=== PATIENT | female | born 1945 ===

== ENCOUNTER 2022-03-29 20:06 | Inpatient (IN) | payer OTHER ==
[2022-03-29 22:35] VITALS: BMI 28.1
[2022-03-29] MEDS ORDERED: Ondansetron PF 4 MG/2 ML Vial IVP PRN (22:55)
[2022-03-29] MEDS ORDERED: Ipratropium/Albuterol 3 ML NEB NEB PRN (22:55)
[2022-03-29] MEDS ORDERED: TETANUS, DIPHTHERIA TOX,ADULT (TDVAX) 0.5 ML VIAL IM ONE (22:55)
[2022-03-30] MEDS: Acetaminophen 500 MG TAB PO SCH ×5 (00:04→23:13)
[2022-03-30] MEDS: Sodium Chloride 0.9% 1,000 ML IV SCH ×3 (00:05→17:17)
[2022-03-30] MEDS: Morphine 2 MG/ML VIAL SLOW IVP PRN ×3 (00:05→09:27)
[2022-03-30 00:10] LABS: SARS-CoV-2 NAA Rapid Test Not Detected (NotDetected)
[2022-03-30 01:53] LABS: Bilirubin Negative (Negative); Blood, Urine Negative (Negative); Glucose, Urine (Dipstick) Negative (Negative); Ketone, Urine Negative (Negative); Leukocyte Negative (Negative); Nitrite Negative (Negative); Protein, Urine (Dipstick) Negative (Neg-Trace); Urobilinogen 0.2 mg/dL (Less than 2)
[2022-03-30 01:59] LABS: CAUTI Indications for Culture Pelvic or flank pain; Clarity Clear (Clear); RBC/HPF 0-3 HPF (0-3)
[2022-03-30 02:00] LABS: Bacteria/HPF 3+ HPF (None Seen)
[2022-03-30 02:01] LABS: Urine Culture Reflex No No
[2022-03-30 05:41] LABS: #Eosinphils 0.1 thou/uL (0.0-0.7); #Lymphocytes 1.6 thou/uL (1.20-3.40); #Monocytes 1.1 thou/uL (0.11-0.59); #Neutrophils 13.7 thou/uL (1.40-6.50); %Basophils 0.1 % (0.0-1.0); %Eosinophils 0.6 % (0.0-10.0); %Lymphocytes 9.6 % (21.0-51.0); %Monocytes 6.9 % (0.0-10.0); %Neutrophils 82.8 % (42.0-75.0); Hemoglobin 12.7 g/dL (12.0-16.0); Mean Corpuscular HGB CONC 32.9 g/dL (32.0-36.0); Mean Corpuscular Hemoglobin 29.4 pg (27.0-31.0); Mean Corpuscular Volume 89.4 fl (78.0-98.0); Mean Platelet Volume 7.1 fL (7.4-10.4); Platelet Count 327 10x3/uL (130-400); RBC Distribution Width 13.1 % (11.5-14.5); Red Blood Cell (RBC) Count 4.31 mill/uL (4.20-5.40); White Blood Cell (WBC) Count 16.6 10x3/uL (4.8-10.8)
[2022-03-30 05:51] LABS: Prothrombin Time 13.9 sec (12.0-14.7)
[2022-03-30 05:52] LABS: PTT 33.3 sec (22.9-36.1)
[2022-03-30 06:01] LABS: Anion Gap 12 mmol/L (10-20); BUN (Urea Nitrogen) 15 mg/dL (9.8-20.1); Calc. Creatinine Clearance 63 mL/min (70-130); Calcium 8.9 mg/dL (7.8-10.44); Carbon Dioxide 28 mmol/L (23-31); Chloride 95 mmol/L (98-107); Estimated GFR 66; Glucose 129 mg/dL (83-110); Magnesium 2.3 mg/dL (1.6-2.6); Phosphorus 2.7 mg/dL (2.3-4.7); Potassium 3.1 mmol/L (3.5-5.1); Sodium 132 mmol/L (136-145)
[2022-03-30] MEDS ORDERED: CEFAZOLIN 2 GM in Sodium Chloride 0.9% 100 ML IVPB SCH (07:45)
[2022-03-30] MEDS ORDERED: Sodium Phosphate 30 MMOL in Sodium Chloride 0.9% 250 ML 250 ML IVPB SCH (08:00)
[2022-03-30] MEDS: Polyethylene Glycol 3350 17 GM Packet PO SCH (09:03)
[2022-03-30] MEDS: Senokot S 8.6-50 MG TAB PO SCH ×3 (09:03→22:09)
[2022-03-30] MEDS: Famotidine/PF 20 mg/2ml Vial SLOW IVP SCH ×2 (09:04→22:09)
[2022-03-30] MEDS ORDERED: hydrALAZINE 20 MG/ML VIAL SLOW IVP PRN (09:33)
[2022-03-30] MEDS ORDERED: Fentanyl 250 MCG/5 ML VIAL ONE (14:19)
[2022-03-30] MEDS ORDERED: CEFAZOLIN 2 GM VIAL ONE (14:20)
[2022-03-30] MEDS ORDERED: Sodium Chloride 0.9% 100 ML ONE (14:20)
[2022-03-30] MEDS ORDERED: ePHEDrine 50 MG/ML VIAL ONE ×2 (14:41)
[2022-03-30] MEDS ORDERED: PROPOFOL 200 MG/20 ML VIAL ONE (14:41)
[2022-03-30] MEDS ORDERED: Glycopyrrolate 0.2 MG/ML 5 ML SYRINGE ONE (14:41)
[2022-03-30] MEDS ORDERED: PHENYLEPHRINE-NS 100 MCG/ML 10 ML SYRINGE ONE (14:41)
[2022-03-30] MEDS ORDERED: NEOSTIGMINE 3 MG/3 ML SYR 3 MG/3 ML SYRINGE ONE (14:41)
[2022-03-30] MEDS ORDERED: Rocuronium Bromide 10 MG/ML (10ML VIAL) ONE (14:41)
[2022-03-30] MEDS ORDERED: Promethazine HCl 25 MG/ML VIAL IM PRN (15:50)
[2022-03-30] MEDS ORDERED: Ondansetron HCl/PF 4 MG/2 ML Vial IVP PRN (15:50)
[2022-03-30] MEDS ORDERED: Promethazine HCl 25 MG/ML VIAL IVPB PRN (15:50)
[2022-03-30] MEDS: Atorvastatin Calcium 40 MG TAB PO SCH (22:09)
[2022-03-30] MEDS: CEFAZOLIN 2 GM in Sodium Chloride 0.9% 100 ML IVPB SCH (22:09)
[2022-03-31] MEDS: Sodium Chloride 0.9% 1,000 ML IV SCH ×2 (03:37→10:39)
[2022-03-31] MEDS: CEFAZOLIN 2 GM in Sodium Chloride 0.9% 100 ML IVPB SCH (05:59)
[2022-03-31] MEDS: Acetaminophen 500 MG TAB PO SCH ×4 (06:00→23:25)
[2022-03-31] MEDS ORDERED: Non-Formulary Item 1 EACH (Omeprazole [Omeprazole] 20 MG Capsule.Dr) PO SCH (09:00)
[2022-03-31] MEDS ORDERED: Lisinopril 10 MG TAB PO SCH (09:00)
[2022-03-31] MEDS: Famotidine/PF 20 mg/2ml Vial SLOW IVP SCH ×2 (10:38→23:23)
[2022-03-31] MEDS: Polyethylene Glycol 3350 17 GM Packet PO SCH (10:40)
[2022-03-31] MEDS: Senokot S 8.6-50 MG TAB PO SCH ×2 (10:41→23:22)
[2022-03-31] MEDS ORDERED: Potassium Chloride 20 MEQ TAB PO SCH (17:00)
[2022-03-31] MEDS ORDERED: cefTRIAXone\\ROCEPHIN 2 GM in Sodium Chloride 0.9% 100 ML IVPB SCH (17:15)
[2022-03-31] MEDS ORDERED: cefTRIAXone\\ROCEPHIN 2 GM VIAL IM SCH (19:30)
[2022-03-31] MEDS ORDERED: Sterile Water 10 ML ONE (22:38)
[2022-03-31] MEDS: Atorvastatin Calcium 40 MG TAB PO SCH (23:22)
[2022-03-31] MEDS: Melatonin 3 MG TAB PO SCH (23:22)
[2022-04-01 00:55] LABS: Bacteria/HPF 4+ HPF (None Seen); Bilirubin Negative (Negative); Blood, Urine Negative (Negative); CAUTI Indications for Culture Alt mental st,lethar; Clarity Clear (Clear); Glucose, Urine (Dipstick) Normal (Negative); Ketone, Urine Negative (Negative); Leukocyte 25 Leu/uL (Negative); Nitrite Negative (Negative); Protein, Urine (Dipstick) Negative (Neg-Trace); RBC/HPF 0-3 HPF (0-3); Specific Gravity, Urine 1.019 (1.002-1.036); Squamous Epithelial 0-3 HPF (0-3); Urobilinogen Normal mg/dL (Less than 2)
[2022-04-01 00:56] LABS: Urine Culture Reflex No No
[2022-04-01] MEDS: Acetaminophen 500 MG TAB PO SCH ×2 (04:56→10:59)
[2022-04-01] MEDS: Levothyroxine Sodium 75 MCG TAB PO SCH (04:56)
[2022-04-01 06:54] LABS: #Basophils 0.1 thou/uL (0.0-0.2); #Eosinphils 0.4 thou/uL (0.0-0.7); #Lymphocytes 1.8 thou/uL (1.20-3.40); #Monocytes 1.2 thou/uL (0.11-0.59); #Neutrophils 8.3 thou/uL (1.40-6.50); %Basophils 0.5 % (0.0-1.0); %Eosinophils 3.1 % (0.0-10.0); %Lymphocytes 15.4 % (21.0-51.0); %Monocytes 10.2 % (0.0-10.0); %Neutrophils 70.8 % (42.0-75.0); Hemoglobin 7.6 g/dL (12.0-16.0); Mean Corpuscular HGB CONC 33.5 g/dL (32.0-36.0); Mean Corpuscular Hemoglobin 30.2 pg (27.0-31.0); Mean Corpuscular Volume 90.1 fl (78.0-98.0); Mean Platelet Volume 7.4 fL (7.4-10.4); Platelet Count 211 10x3/uL (130-400); RBC Distribution Width 13.1 % (11.5-14.5); Red Blood Cell (RBC) Count 2.52 mill/uL (4.20-5.40); White Blood Cell (WBC) Count 11.7 10x3/uL (4.8-10.8)
[2022-04-01 07:14] LABS: Phosphorus 2.6 mg/dL (2.3-4.7)
[2022-04-01 07:16] LABS: Anion Gap 8 mmol/L (10-20); BUN (Urea Nitrogen) 13 mg/dL (9.8-20.1); Calc. Creatinine Clearance 77 mL/min (70-130); Calcium 8.1 mg/dL (7.8-10.44); Carbon Dioxide 28 mmol/L (23-31); Chloride 102 mmol/L (98-107); Estimated GFR 84; Glucose 107 mg/dL (83-110); Magnesium 1.7 mg/dL (1.6-2.6); Potassium 3.2 mmol/L (3.5-5.1); Sodium 135 mmol/L (136-145)
[2022-04-01] MEDS ORDERED: Magnesium 2 GM/50 ML(in water) 2 GM in Premix Bag 1 BAG IVPB SCH (08:00)
[2022-04-01] MEDS ORDERED: Clopidogrel Bisulfate 75 MG TAB PO SCH (09:00)
[2022-04-01] MEDS: Polyethylene Glycol 3350 17 GM Packet PO SCH (10:20)
[2022-04-01] MEDS: Senokot S 8.6-50 MG TAB PO SCH ×2 (10:21→20:21)
[2022-04-01] MEDS: Saccharomyces boulardii 250 MG CAP PO SCH (10:21)
[2022-04-01] MEDS: Nortriptyline HCl 25 MG CAP PO SCH (10:21)
[2022-04-01] MEDS: Lisinopril 20 MG TAB PO SCH (10:22)
[2022-04-01] MEDS: Potassium Chloride 20 MEQ in Premix Bag 1 BAG IVPB SCH ×2 (10:47→12:38)
[2022-04-01] MEDS: Famotidine/PF 20 mg/2ml Vial SLOW IVP SCH ×2 (10:53→20:22)
[2022-04-01] MEDS: Ascorbic Acid 500 mg Chewable Tablet PO SCH ×2 (11:00→20:18)
[2022-04-01] MEDS ORDERED: Ibuprofen 200 MG TAB PO PRN (12:15)
[2022-04-01] MEDS: Ferrous Sulfate 325 MG TAB PO SCH (18:20)
[2022-04-01] MEDS: Acetaminophen/Codeine 30-300mg Tablet PO SCH (18:20)
[2022-04-01] MEDS: Atorvastatin Calcium 40 MG TAB PO SCH (20:20)
[2022-04-01] MEDS: Melatonin 3 MG TAB PO SCH (20:20)
[2022-04-02] MEDS: cefTRIAXone\\ROCEPHIN 2 GM in Sodium Chloride 0.9% 100 ML IVPB SCH (00:55)
[2022-04-02] MEDS: Acetaminophen/Codeine 30-300mg Tablet PO SCH ×4 (00:55→18:24)
[2022-04-02] MEDS: Levothyroxine Sodium 75 MCG TAB PO SCH (05:07)
[2022-04-02] MEDS: Polyethylene Glycol 3350 17 GM Packet PO SCH (10:14)
[2022-04-02] MEDS: Nortriptyline HCl 25 MG CAP PO SCH (10:14)
[2022-04-02] MEDS: Saccharomyces boulardii 250 MG CAP PO SCH (10:14)
[2022-04-02] MEDS: Ascorbic Acid 500 mg Chewable Tablet PO SCH ×2 (10:15→21:30)
[2022-04-02] MEDS: Senokot S 8.6-50 MG TAB PO SCH ×2 (10:15→21:30)
[2022-04-02] MEDS: Lisinopril 20 MG TAB PO SCH (10:15)
[2022-04-02] MEDS: Ferrous Sulfate 325 MG TAB PO SCH ×2 (10:15→18:24)
[2022-04-02] MEDS: Famotidine/PF 20 mg/2ml Vial SLOW IVP SCH ×2 (10:15→21:30)
[2022-04-02 12:03] LABS: Anion Gap 12 mmol/L (10-20); BUN (Urea Nitrogen) 11 mg/dL (9.8-20.1); Calc. Creatinine Clearance 78 mL/min (70-130); Calcium 8.4 mg/dL (7.8-10.44); Carbon Dioxide 26 mmol/L (23-31); Chloride 100 mmol/L (98-107); Estimated GFR 86; Glucose 125 mg/dL (83-110); Phosphorus 1.7 mg/dL (2.3-4.7); Potassium 3.5 mmol/L (3.5-5.1); Sodium 134 mmol/L (136-145)
[2022-04-02 13:36] LABS: #Eosinphils 0.2 thou/uL (0.0-0.7); #Lymphocytes 1.6 thou/uL (1.20-3.40); #Monocytes 1.2 thou/uL (0.11-0.59); #Neutrophils 9.1 thou/uL (1.40-6.50); %Basophils 0.4 % (0.0-1.0); %Eosinophils 1.8 % (0.0-10.0); %Monocytes 9.7 % (0.0-10.0); %Neutrophils 75.1 % (42.0-75.0); Hemoglobin 8.4 g/dL (12.0-16.0); Mean Corpuscular HGB CONC 32.6 g/dL (32.0-36.0); Mean Corpuscular Hemoglobin 29.8 pg (27.0-31.0); Mean Corpuscular Volume 91.2 fl (78.0-98.0); Mean Platelet Volume 8.3 fL (7.4-10.4); Platelet Count 276 10x3/uL (130-400); RBC Distribution Width 13.4 % (11.5-14.5); Red Blood Cell (RBC) Count 2.82 mill/uL (4.20-5.40); White Blood Cell (WBC) Count 12.1 10x3/uL (4.8-10.8)
[2022-04-02] MEDS ORDERED: Potassium Phosphate 30 MMOL in Sodium Chloride 0.9% 250 ML 250 ML IVPB SCH (13:45)
[2022-04-02] MEDS: Atorvastatin Calcium 40 MG TAB PO SCH (21:30)
[2022-04-02] MEDS: Melatonin 3 MG TAB PO SCH (21:30)
[2022-04-03] MEDS: cefTRIAXone\\ROCEPHIN 2 GM in Sodium Chloride 0.9% 100 ML IVPB SCH (01:05)
[2022-04-03] MEDS: Acetaminophen/Codeine 30-300mg Tablet PO SCH ×5 (01:15→23:22)
[2022-04-03 06:18] LABS: #Eosinphils 0.4 thou/uL (0.0-0.7); #Lymphocytes 1.8 thou/uL (1.20-3.40); #Monocytes 0.9 thou/uL (0.11-0.59); %Basophils 0.4 % (0.0-1.0); %Eosinophils 3.6 % (0.0-10.0); %Lymphocytes 17.6 % (21.0-51.0); %Monocytes 9.1 % (0.0-10.0); %Neutrophils 69.3 % (42.0-75.0); Mean Corpuscular HGB CONC 31.9 g/dL (32.0-36.0); Mean Corpuscular Hemoglobin 28.9 pg (27.0-31.0); Mean Corpuscular Volume 90.8 fl (78.0-98.0); Mean Platelet Volume 7.3 fL (7.4-10.4); Platelet Count 278 10x3/uL (130-400); RBC Distribution Width 13.3 % (11.5-14.5); Red Blood Cell (RBC) Count 2.76 mill/uL (4.20-5.40); White Blood Cell (WBC) Count 10.1 10x3/uL (4.8-10.8)
[2022-04-03] MEDS: Levothyroxine Sodium 75 MCG TAB PO SCH (06:24)
[2022-04-03 06:41] LABS: Anion Gap 11 mmol/L (10-20); BUN (Urea Nitrogen) 10 mg/dL (9.8-20.1); Calc. Creatinine Clearance 76 mL/min (70-130); Calcium 8.4 mg/dL (7.8-10.44); Carbon Dioxide 27 mmol/L (23-31); Chloride 101 mmol/L (98-107); Estimated GFR 83; Glucose 103 mg/dL (83-110); Phosphorus 3.3 mg/dL (2.3-4.7); Sodium 135 mmol/L (136-145)
[2022-04-03] MEDS: Saccharomyces boulardii 250 MG CAP PO SCH (09:29)
[2022-04-03] MEDS: Ascorbic Acid 500 mg Chewable Tablet PO SCH (09:29)
[2022-04-03] MEDS: Senokot S 8.6-50 MG TAB PO SCH ×2 (09:29→20:33)
[2022-04-03] MEDS: Lisinopril 20 MG TAB PO SCH (09:30)
[2022-04-03] MEDS: Ferrous Sulfate 325 MG TAB PO SCH ×2 (09:30→09:33)
[2022-04-03] MEDS: Hydrochlorothiazide 25 MG TAB PO SCH (09:33)
[2022-04-03] MEDS: Polyethylene Glycol 3350 17 GM Packet PO SCH (09:35)
[2022-04-03] MEDS ORDERED: Acetaminophen/Codeine 30-300mg Tablet PO PRN (10:53)
[2022-04-03] MEDS: Nortriptyline HCl 25 MG CAP PO SCH (20:34)
[2022-04-03] MEDS: Atorvastatin Calcium 40 MG TAB PO SCH (20:34)
[2022-04-03] MEDS: Melatonin 3 MG TAB PO SCH (20:34)
[2022-04-04] MEDS: Acetaminophen/Codeine 30-300mg Tablet PO SCH ×4 (05:06→23:54)
[2022-04-04] MEDS: Levothyroxine Sodium 75 MCG TAB PO SCH (05:07)
[2022-04-04] MEDS: Polyethylene Glycol 3350 17 GM Packet PO SCH (08:45)
[2022-04-04] MEDS: Saccharomyces boulardii 250 MG CAP PO SCH (08:46)
[2022-04-04] MEDS: Lisinopril 20 MG TAB PO SCH (08:46)
[2022-04-04] MEDS: Senokot S 8.6-50 MG TAB PO SCH ×2 (08:46→21:30)
[2022-04-04] MEDS: Clopidogrel Bisulfate 75 MG TAB PO SCH (08:46)
[2022-04-04] MEDS: Hydrochlorothiazide 25 MG TAB PO SCH (08:46)
[2022-04-04] MEDS: Ascorbic Acid 500 mg Chewable Tablet PO SCH (08:46)
[2022-04-04] MEDS: Ferrous Sulfate 325 MG TAB PO SCH (08:46)
[2022-04-04] MEDS: Aspirin 81 mg Enteric Coated Tablet PO SCH (08:46)
[2022-04-04] MEDS: Melatonin 3 MG TAB PO SCH (21:29)
[2022-04-04] MEDS: Nortriptyline HCl 25 MG CAP PO SCH (21:29)
[2022-04-04] MEDS: Atorvastatin Calcium 40 MG TAB PO SCH (21:29)
[2022-04-05] MEDS: Acetaminophen/Codeine 30-300mg Tablet PO SCH ×4 (05:39→23:16)
[2022-04-05] MEDS: Levothyroxine Sodium 75 MCG TAB PO SCH (05:39)
[2022-04-05] MEDS: Hydrochlorothiazide 25 MG TAB PO SCH (10:11)
[2022-04-05] MEDS: Clopidogrel Bisulfate 75 MG TAB PO SCH (10:11)
[2022-04-05] MEDS: Polyethylene Glycol 3350 17 GM Packet PO SCH (10:11)
[2022-04-05] MEDS: Saccharomyces boulardii 250 MG CAP PO SCH (10:11)
[2022-04-05] MEDS: Lisinopril 20 MG TAB PO SCH (10:12)
[2022-04-05] MEDS: Senokot S 8.6-50 MG TAB PO SCH ×2 (10:12→20:36)
[2022-04-05] MEDS: Ferrous Sulfate 325 MG TAB PO SCH (10:12)
[2022-04-05] MEDS: Aspirin 81 mg Enteric Coated Tablet PO SCH (10:12)
[2022-04-05] MEDS: Ascorbic Acid 500 mg Chewable Tablet PO SCH (10:12)
[2022-04-05] MEDS: Nortriptyline HCl 25 MG CAP PO SCH (20:36)
[2022-04-05] MEDS: Atorvastatin Calcium 40 MG TAB PO SCH (20:36)
[2022-04-05] MEDS: Melatonin 3 MG TAB PO SCH (20:37)
[2022-04-06] MEDS: Acetaminophen/Codeine 30-300mg Tablet PO SCH ×2 (05:15→11:57)
[2022-04-06] MEDS: Levothyroxine Sodium 75 MCG TAB PO SCH (05:15)
[2022-04-06] MEDS: Polyethylene Glycol 3350 17 GM Packet PO SCH (08:57)
[2022-04-06] MEDS: Lisinopril 20 MG TAB PO SCH (08:57)
[2022-04-06] MEDS: Senokot S 8.6-50 MG TAB PO SCH (08:57)
[2022-04-06] MEDS: Saccharomyces boulardii 250 MG CAP PO SCH (08:57)
[2022-04-06] MEDS: Ascorbic Acid 500 mg Chewable Tablet PO SCH (08:58)
[2022-04-06] MEDS: Aspirin 81 mg Enteric Coated Tablet PO SCH (08:58)
[2022-04-06] MEDS: Clopidogrel Bisulfate 75 MG TAB PO SCH (08:58)
[2022-04-06] MEDS: Ferrous Sulfate 325 MG TAB PO SCH (08:59)
[2022-04-06] MEDS: Hydrochlorothiazide 25 MG TAB PO SCH (08:59)
[2022-04-06 12:05] VITALS: BP 121/68; TEMP 98.4
== END 2022-04-06 14:56 | DRG 956 ==
LOC: SURG B 22:18
PROVIDERS: ADMIT Surgery; ATTEND Surgery
PROC: 0SRR0JA Replacement of Right Hip Joint, Femoral Surface with Synthetic Substitute, Uncemented, Open Approach (ICD-10-PCS; principal; 2022-03-30)
DX: S72.001A Fracture of unspecified part of neck of right femur, initial encounter for closed fracture (principal); S06.6XAA Traumatic subarachnoid hemorrhage with loss of consciousness status unknown, initial encounter; G93.41 Metabolic encephalopathy; D62 Acute posthemorrhagic anemia; N39.0 Urinary tract infection, site not specified; Z16.24 Resistance to multiple antibiotics; I10 Essential (primary) hypertension; Z20.822 Contact with and (suspected) exposure to COVID-19; W19.XXXA Unspecified fall, initial encounter; E87.6 Hypokalemia; E83.41 Hypermagnesemia; Z86.73 Personal history of transient ischemic attack (TIA), and cerebral infarction without residual deficits; Y92.9 Unspecified place or not applicable; Z79.899 Other long term (current) drug therapy; Z90.710 Acquired absence of both cervix and uterus; Z98.890 Other specified postprocedural states
CPT/HCPCS: 36415; 70450; 71045; 72170; 80048; 81001; 83735; 84100; 85025; 85610; 85730; 86850; 86900; 86901; 87086; 87186; 87811; 93306; 93880; C1713; C1776; J0360; J0696; J2272; J2704; J3010; J3475; J3480; J3490; J7050; S0028; U0002